=== PATIENT | female | born 1965 | race Caucasian/White ===

== ENCOUNTER 2018-06-16 22:26 | Emergency (ER) | payer BC ==
[~2018-06-16] VITALS: Ht 162.6 cm; Wt 73.5 kg
[2018-06-16 22:35] VITALS: Ht 162.6 cm; Wt 73.5 kg
[2018-06-17 01:14] VITALS: BP 133/80
== END 2018-06-17 01:14 | disposition home or self-care (01) ==
LOC: ED 22:26
DX: S06.891A Other specified intracranial injury with loss of consciousness of 30 minutes or less, initial encounter (principal); W22.8XXA Striking against or struck by other objects, initial encounter; Y93.89 Activity, other specified; Y92.89 Other specified places as the place of occurrence of the external cause; Y99.8 Other external cause status
CPT/HCPCS: J1885